=== PATIENT | female | born 1980 | race Caucasian/White ===

== ENCOUNTER 2020-09-20 14:27 | Outpatient (CLI) | payer OTHER, SELFPAY ==
[2020-09-20 15:04] LABS: SARS-CoV-2 Ag Negative (Negative)
== END 2020-09-20 14:28 | disposition home or self-care (01) ==
LOC: CHSLAB 14:30
PROVIDERS: PCP Physician Assistant; Visit Provider Physician Assistant
DX: Z20.828 Contact with and (suspected) exposure to other viral communicable diseases (principal)
CPT/HCPCS: 87426; C9803

== ENCOUNTER 2020-12-02 16:10 | Emergency (ER) | payer OTHER, SELFPAY ==
--- NOTE | ~2020-12-02 | CT_ITS ---
EXAMINATION: CT abdomen pelvis w con DATE: 12/02/2020 20:38 INDICATION: Bilateral lower abdominal pain TECHNIQUE: Computed tomography (CT) of the abdomen and pelvis was performed with 100 cc Omnipaque 350 intravenous contrast. Automated exposure control and iterative reconstruction technique were employe d. Exam dose: 293.40 mGy-cm total exam DLP. COMPARISON: None. FINDINGS: The included lower lung zones are clear of infiltrate or consolidation. Normal heart size. No pericardial or pleural effusion. No hepatic, splenic, pancreatic, adrenal or renal space occupying mass lesion is detected. The gallb ladder is present. No bile duct or pancreatic duct dilatation. No urinary tract calculus or hydrour eteronephrosis. Normal appendix. There is a prominent amount of feces in the colon. No bowel obstruction or intrape ritoneal free air. The uterus and adnexal areas are unremarkable. Normal caliber of the abdominal aorta. No intraperitoneal or retroperitoneal or pelvic mass lesion o r lymphadenopathy or ascites. No suspicious osteolytic or osteoblastic lesions. IMPRESSION: No significant abnormality Reviewed, dictated and finalized at [facility]. Reviewed, dictated and finalized at [facility]. IMPRESSION: No significant abnormality
[2020-12-02 16:17] VITALS: BP 139/84; PULSE 105; RESP 24; TEMP 37.1; O2SAT 100
--- NOTE | 2020-12-02 16:22 | PC.NURSE ---
Pt notes using fentanyl 8 days ago intravenously
[2020-12-02 16:36] LABS: Basophils Absolute Auto 0.1 K/mm3 (0.0-0.1); Basophils Percent Auto 0.4 % (0.2-1.2); Eosinophils Percent Auto 0.1 % (0-4.4); Hematocrit 48.3 % (37.0-47.0); Immature Granulocyte Absolute 0.09 K/mm3 (0.00-0.031); Immature Granulocyte Percent A 0.5 % (0-0.5); Lymphocytes Absolute Auto 2.36 K/mm3 (0.9-3.2); Lymphocytes Percent Auto 14.1 % (18.3-44.2); Mean Corpuscular HGB Conc 35.2 g/dl (32-36); Mean Corpuscular Hemoglobin 30.7 pg (26-34); Mean Corpuscular Volume 87.2 fl (80-100); Mean Platelet Volume 8.9 fl (7.4-10.4); Monocytes Absolute Auto 1.1 K/mm3 (0.1-0.6); Monocytes Percent Auto 6.5 % (2.6-8.5); Neutrophils Absolute Auto 13.1 K/mm3 (1.3-6.7); Neutrophils Percent Auto 78.4 % (45.5-73.1); Platelet Count Result 496 k/mm3 (150-375); Red Blood Count 5.54 M/mm3 (4.2-5.4); Red Cell Distribution Width 12.3 % (11.5-14.5); White Blood Count 16.7 K/mm3 (4.5-10.0)
[2020-12-02 16:49] LABS: Alanine Aminotransferase 16 U/L (4-35); Albumin Level 5.2 g/dL (3.5-5.1); Alkaline Phosphatase 100 U/L (38-126); Anion Gap 13 mmol/L (8-16); Aspartate Amino Transferase 27 U/L (14-36); Bilirubin,Total 1.1 mg/dL (0.2-1.3); Blood Urea Nitrogen 12 mg/dL (7-17); Calcium 10.2 mg/dL (8.4-10.2); Carbon Dioxide 21 mmol/L (22-30); Chloride 103 mmol/L (98-107); Estimated CRCL calculation 79 ml/min; Estimated Glomerular Filt Rate > 60; Glucose 104 mg/dL (65-105); Lipase 273 U/L (23-300); Potassium 4.7 mmol/L (3.4-5.0); Sodium 137 mmol/L (137-145)
[2020-12-02 17:06] VITALS: BP 119/83; PULSE 88; RESP 37; O2SAT 100
--- NOTE | 2020-12-02 17:11 | ED.ABDPAIN ---
HPI - Abdominal Pain General Chief Complaint: Urogenital-Female Stated Complaint: multiple complaints Time Seen by Provider: 12/02/20 16:58 Source: patient Mode of arrival: ambulatory Limitations: no limitations History of Present Illness HPI narrative: Patient is a 40 years old white female presents with lower abdominal pain bilaterally associated with nausea radiating to lower back bilaterally started 6 hours prior to arrival to the emergency room. Patient also complaining of diaphoresis and shaking. 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 Patient denies any fever or vomiting. Related Data Home Medications Medication Instructions Recorded Confirmed hydroxyzine HCl 12/02/20 Allergies Allergy/AdvReac Type Severity Reaction Status Date / Time No Known Allergies Allergy Unverified 12/02/20 17:15 Review of Systems Review of Systems: Narrative: CONSTITUTIONAL: Denies fever, chills, or sweats. EYES: Denies visual changes, redness, or discharge. ENT: Denies rhinorrhea, congestion, sore throat, or otalgia. CARDIOVASCULAR: Denies chest pain, palpitations, or edema. RESPIRATORY: Denies cough or dyspnea. GASTROINTESTINAL: Denies abdominal pain, nausea, vomiting, or diarrhea. GENITOURINARY: Denies dysuria or hematuria. SKIN: Denies rash or itching. MUSCULOSKELETAL: Denies back pain, joint pain, or myalgia. NEUROLOGIC: Denies headache, numbness, or weakness. PSYCHIATRIC: Denies anxiety or depression. Exam Narrative: Exam Narrative: General appearance: Well-developed, well-nourished Skin: Normal color, diaphoretic Head: Normocephalic, nontraumatic Eyes: Clear conjunctiva ENT: Oropharynx normal, ears normal, nose normal Neck: Supple, nontender Chest and respiratory: Airway patent, no respiratory distress, no accessory muscle use Heart: Regular rate/rhythm Abdomen: Soft, diffuse lower abdominal tenderness bilaterally, quiet bowel sounds, no guarding or rebound Vascular: Normal peripheral pulses, normal capillary refill. Musculoskeletal: Normal range of motion, diffuse tenderness across lumbar area Neurologic: Alert and oriented ?3, SCRAPE G[employer]ER is normal as tested, no gross motor deficit Course Course Emergency Course: Stable, improving Vital Signs Vital signs: Vital Signs Temperature 37.1 C 12/02/20 16:17 Pulse Rate 105 H 12/02/20 16:17 Respiratory Rate 24 H 12/02/20 16:17 Blood Pressure 139/84 12/02/20 16:17 Pulse Oximetry 100 12/02/20 16:17 Temperature 37.1 C 12/02/20 16:17 Pulse Rate 82 12/02/20 17:32 Respiratory Rate 19 12/02/20 17:32 Blood Pressure 110/98 H 12/02/20 17:32 Pulse Oximetry 100 12/02/20 17:17 MDM - Abdominal Pain MDM Narrative Medical decision making narrative: Patient presents with abdominal pain and nausea and diaphoresis. Urinary tract infection, drug withdrawal side effect, intra-abdominal infection are my concern. Labs, UA, CT abdomen pelvis with IV contrast, IV fluids, IV Reglan and Benadryl ordered. Further plan to follow Differential Diagnosis Differential diagnosis: Likely abdominal pain, acute appendicitis, constipation, diverticulitis and pancreatitis Lab Data Result diagrams: 12/02/20 16:27 12/02/20 16:27 Labs: Lab Results 12/02/20 12/02/20 12/02/20 Range/Units 16:27 16:27 20:08 WBC 16.7 H (4.5-10.0) K/mm3 RBC 5.54 H (4.2-5.4) M/mm3 Hgb 17.0 H (12.0-15.0) g/dL Hct 48.3 H (37.0-47.0) % MCV 87.2 (80-100) fl MCH 30.7 (26-34) pg MCHC 35.2 (32-36) g/dl RDW 12.3 (11.5-14.5) % Plt Count 496 H (150
[2020-12-02 17:17] VITALS: BP 117/95; PULSE 85; RESP 28; O2SAT 100
[2020-12-02 17:32] VITALS: BP 110/98; PULSE 82; RESP 19
--- NOTE | 2020-12-02 18:08 | PC.NURSE ---
No IV placement made, attempt by [address] Burgos to attempt with ultrasound.
--- NOTE | 2020-12-02 18:41 | PC.NURSE ---
[address] Burgos via ultrasound infiltrated
--- NOTE | 2020-12-02 19:08 | PC.NURSE ---
Dr. Gifford at bedside to attempt EJ. Unable to visualize vein for access. Awaiting night RN for ultrasound attempt.
[2020-12-02] MEDS: METOCLOPRAMIDE HCL INJ 10 MG/2 ML VIAL IV PUSH (19:56)
[2020-12-02] MEDS: SODIUM CHLORIDE 0.9% IV 1,000 ML 999 ML IV CONT ×2 (19:56→20:35)
[2020-12-02] MEDS: diphenhydrAMINE HCl INJ 50 MG/ML VIAL IV PUSH (19:56)
[2020-12-02 20:23] LABS: Add Urine Microscopic? YES; Appearance Urine Cloudy (Clear); Bilirubin Urine Negative (Negative); Blood Urine Negative (Negative); Color Urine Yellow (Yellow); Glucose Urine UA Negative (Negative); Ketones Urine 1+ mg/dL (Negative); Leukocyte Esterase Ur Negative LEU/UL (Negative); Mucus Urine Rare /lpf; Nitrate Urine Negative (Negative); Protein Urine Negative (Negative); Specific Grav Ur 1.012 (1.001-1.035); Squamous Epithelial Cell Urine Many /hpf (Few); Urobilinogen Urine Negative mg/dL (<2.0); WBC Urine 0-3 /hpf
[2020-12-02 20:58] LABS: Amphetamine Screen Urine Negative (Negative); Barbiturate Screen Urine Negative (Negative); Benzodiazepines Screen Urine Positive (Negative); Cannabinoid Screen Urine Positive (Negative); Cocaine Screen Urine Positive (Negative); Methadone Screen Urine Negative (Negative); Opiate Screen Urine Negative (Negative); Phencyclidine Screen Urine Negative (Negative)
[2020-12-02 21:40] VITALS: BP 118/67; PULSE 86; RESP 18; TEMP 36.8; O2SAT 100
== END 2020-12-02 21:41 | disposition home or self-care (01) ==
PROVIDERS: Emergency Medicine; Emergency Provider Emergency Medicine; PCP Physician Assistant
DX: F11.23 Opioid dependence with withdrawal (principal); R10.32 Left lower quadrant pain; R10.31 Right lower quadrant pain
CPT/HCPCS: 36415; 74177; 80053; 80307; 81001; 81025; 83690; 85025; 96361; 96374; 96375; 99284; J1200; J2765; J7030; Q9967

== ENCOUNTER 2021-09-13 16:41 | Outpatient (CLI) | payer OTHER, SELFPAY ==
[2021-09-13 18:18] LABS: SARS-CoV-2 RNA PCR Negative (Negative)
== END 2021-09-13 16:42 | disposition home or self-care (01) ==
LOC: CHSLAB 16:43
PROVIDERS: PCP Physician Assistant; Visit Provider Physician Assistant
DX: Z20.822 Contact with and (suspected) exposure to COVID-19 (principal)
CPT/HCPCS: C9803; U0003; U0005